=== PATIENT | female | born 1955 | race Two or more races ===

== ENCOUNTER 2017-08-17 13:48 | Outpatient (CLI) | payer OTHER | END 2017-08-17 13:55 | disposition home or self-care (01) | LOC: MAMO-SONO 13:48 | DX: Z12.31 Encounter for screening mammogram for malignant neoplasm of breast (principal); N61.0 Mastitis without abscess ==

== ENCOUNTER 2017-12-31 07:53 | Day surgery (SDC) | payer OTHER | END 2017-12-31 13:36 | disposition home or self-care (01) | LOC: AMB-ENDOS 07:53 | DX: K59.09 Other constipation (principal) ==

== ENCOUNTER → 2018-11-27 | Outpatient (CLI) | payer OTHER | END | disposition home or self-care (01) | LOC: MAMO-SONO 13:14 | DX: N60.11 Diffuse cystic mastopathy of right breast (principal); N60.12 Diffuse cystic mastopathy of left breast; Z12.31 Encounter for screening mammogram for malignant neoplasm of breast; E04.1 Nontoxic single thyroid nodule; E03.8 Other specified hypothyroidism ==

== ENCOUNTER 2018-12-05 13:31 | Outpatient (CLI) | payer OTHER | END 2018-12-05 14:01 | disposition home or self-care (01) | LOC: NUCLEAR 13:31 | DX: M81.0 Age-related osteoporosis without current pathological fracture (principal) ==

== ENCOUNTER 2019-12-31 11:41 | Outpatient (CLI) | payer OTHER | END 2019-12-31 11:42 | disposition home or self-care (01) | LOC: MAMO-SONO 11:41 | PROVIDERS: ATTEND Specialist | DX: Z12.31 Encounter for screening mammogram for malignant neoplasm of breast (principal); N60.11 Diffuse cystic mastopathy of right breast; N60.12 Diffuse cystic mastopathy of left breast ==

== ENCOUNTER → 2020-12-24 | Outpatient (CLI) | payer OTHER | END | disposition home or self-care (01) | LOC: MAMO-SONO 13:03 | PROVIDERS: ATTEND Internal Medicine Endocrinology, Diabetes & Metabolism | DX: E04.1 Nontoxic single thyroid nodule (principal) ==

== ENCOUNTER 2021-01-07 12:41 | Outpatient (CLI) | payer OTHER | END 2021-01-07 12:50 | disposition home or self-care (01) | LOC: MAMO-SONO 12:41 | PROVIDERS: ATTEND Internal Medicine Endocrinology, Diabetes & Metabolism | DX: Z12.31 Encounter for screening mammogram for malignant neoplasm of breast (principal); N61.0 Mastitis without abscess; N64.0 Fissure and fistula of nipple ==

== ENCOUNTER 2021-03-05 10:08 | Emergency (ER) | payer OTHER ==
[~2021-03-05] VITALS: Ht 167.6 cm; Wt 77.1 kg
[2021-03-05] MEDS ORDERED: NAPROSYN125 MG/5 M (10:41)
[2021-03-05] MEDS ORDERED: LEVOTHYROXINE88 MC1 (10:41)
== END 2021-03-05 14:25 | disposition home or self-care (01) ==
LOC: ER 10:08
DX: J06.9 Acute upper respiratory infection, unspecified (principal); Z20.822 Contact with and (suspected) exposure to COVID-19

== ENCOUNTER 2021-09-07 08:00 | Outpatient (CLI) | payer OTHER ==
[~2021-09-07 08:00] MED LIST: LEVOTHYROXINE88 MC1; NAPROSYN125 MG/5 M
== END 2021-09-07 08:30 | disposition home or self-care (01) ==
LOC: PPH VACUNA 08:00
PROVIDERS: ATTEND Emergency Medicine Pediatric Emergency Medicine
DX: Z23 Encounter for immunization (principal)

== ENCOUNTER 2022-02-27 08:41 | Outpatient (CLI) | payer OTHER | END 2022-02-27 08:48 | disposition home or self-care (01) | LOC: NUCLEAR 08:41 | PROVIDERS: ATTEND Specialist | DX: M81.0 Age-related osteoporosis without current pathological fracture (principal); Z91.013 Allergy to seafood ==

== ENCOUNTER → 2022-03-14 | Outpatient (CLI) | payer OTHER | END | disposition home or self-care (01) | LOC: MAMO-SONO 09:19 | PROVIDERS: ATTEND Specialist | DX: Z12.31 Encounter for screening mammogram for malignant neoplasm of breast (principal); N60.11 Diffuse cystic mastopathy of right breast; N60.12 Diffuse cystic mastopathy of left breast ==

== ENCOUNTER 2022-04-24 10:30 | Outpatient (CLI) | payer OTHER | END 2022-04-24 10:40 | disposition home or self-care (01) | LOC: PPH VACUNA 10:30 | PROVIDERS: ATTEND Emergency Medicine Pediatric Emergency Medicine | DX: Z23 Encounter for immunization (principal) ==

== ENCOUNTER → 2023-02-05 | Outpatient (CLI) | payer OTHER | END | disposition home or self-care (01) | LOC: TOM 11:11 | PROVIDERS: ATTEND Internal Medicine | DX: J44.9 Chronic obstructive pulmonary disease, unspecified (principal); Z72.0 Tobacco use ==

== ENCOUNTER 2023-04-18 11:53 | Outpatient (CLI) | payer OTHER | END 2023-04-18 11:55 | disposition home or self-care (01) | LOC: MAMO-SONO 11:53 | PROVIDERS: ATTEND Specialist | DX: N60.11 Diffuse cystic mastopathy of right breast (principal); N60.12 Diffuse cystic mastopathy of left breast; Z12.31 Encounter for screening mammogram for malignant neoplasm of breast ==

== ENCOUNTER 2024-10-28 12:20 | Outpatient (CLI) | payer OTHER | END 2024-10-28 12:22 | disposition home or self-care (01) | LOC: MAMO-SONO 12:20 | PROVIDERS: ATTEND Specialist | DX: N60.11 Diffuse cystic mastopathy of right breast (principal); N60.12 Diffuse cystic mastopathy of left breast; R92.8 Other abnormal and inconclusive findings on diagnostic imaging of breast; Z12.31 Encounter for screening mammogram for malignant neoplasm of breast ==

== ENCOUNTER 2024-12-17 13:03 | Outpatient (CLI) | payer OTHER | END 2024-12-17 13:04 | disposition home or self-care (01) | LOC: NUCLEAR 13:03 | PROVIDERS: ATTEND Specialist | DX: M81.0 Age-related osteoporosis without current pathological fracture (principal) ==

== ENCOUNTER 2025-04-30 10:00 | Outpatient (CLI) | payer OTHER | END 2025-04-30 10:03 | disposition home or self-care (01) | LOC: TOM 10:00 | PROVIDERS: ATTEND Internal Medicine Gastroenterology | DX: R10.30 Lower abdominal pain, unspecified (principal); R10.10 Upper abdominal pain, unspecified; Z91.013 Allergy to seafood | CPT/HCPCS: 74177; Q9965 ==